=== PATIENT | male | born 1985 | race Caucasian/White ===

== ENCOUNTER 2023-03-14 11:28 | Emergency (ER) | payer OTHER ==
[2023-03-14] MEDS ORDERED: Morphine 4 MG/ML VIAL ONE (11:48)
[2023-03-14] MEDS ORDERED: Ketorolac Tromethamine 30 MG/ML VIAL ONE (11:49)
== END 2023-03-14 13:08 ==
LOC: CSHERS 11:28 → EEVIPCON 11:28 → CSHERS 13:08
DX: S63.591A Other specified sprain of right wrist, initial encounter (principal); I10 Essential (primary) hypertension; E11.9 Type 2 diabetes mellitus without complications; W01.0XXA Fall on same level from slipping, tripping and stumbling without subsequent striking against object, initial encounter; Z79.899 Other long term (current) drug therapy; Z79.84 Long term (current) use of oral hypoglycemic drugs
CPT/HCPCS: 96372; J1885; J2270